=== PATIENT | female | born 1980 | race Caucasian/White ===

== ENCOUNTER 2017-06-25 23:17 | Emergency (ER) | payer BC, OTHER ==
--- NOTE | 2017-06-25 23:31 | EDM.PDOC ---
ED HPI GENERAL MEDICAL PROBLEM - General Chief Complaint: Gastrointestinal Problem Stated Complaint: STOMACH ISSUES Time Seen by Provider: 06/25/17 23:35 - History of Present Illness INITIAL COMMENTS - FREE TEXT/NARRATIVE: HISTORY AND PHYSICAL: History of present illness: Patient 37-year-old female presents with concern of nausea and vomiting 1 day she's had some abdominal chest discomfort with this she states she's one year status post gastric sleeve she denies any medications he denies alcohol or drugs denies any other concern there's been no diarrhea she states her child is had a similar illness and she assumes might be "the flu" she denies fever chills denies history of pancreatitis she has history of hysterectomy Review of systems: As per history of present illness and below otherwise all systems reviewed and negative. Past medical history: As per history of present illness and as reviewed below otherwise noncontributory. Surgical history: As per history of present illness and as reviewed below otherwise noncontributory. Social history: No reported history of drug or alcohol abuse. Family history: As per history of present illness and as reviewed below otherwise noncontributory. Physical exam: HEENT: Atraumatic, normocephalic, pupils reactive, negative for conjunctival pallor or scleral icterus, mucous membranes dry, throat clear, neck supple, nontender, trachea midline. Lungs: Clear to auscultation, breath sounds equal bilaterally, chest nontender. Heart: S1S2, regular, negative for clicks, rubs, or JVD. Abdomen: Soft, nondistended, no localized tenderness. Negative for masses or hepatosplenomegaly. Negative for costovertebral tenderness. Pelvis: Stable nontender. Genitourinary: Deferred. Rectal: Deferred. Extremities: Atraumatic, negative for cords or calf pain. Neurovascular unremarkable. Neuro: Awake, alert, oriented. Cranial nerves II through XII unremarkable. Cerebellum unremarkable. Motor and sensory unremarkable throughout. Exam nonfocal. Diagnostics: CBC CMP amylase lipase UA UDS CT abdomen and pelvis chest x-ray EKG Therapeutics: Normal saline 1 L bolus Zofran 4 mg IV Impression: #1 vomiting #2 abdominal pain #3 dehydration #3 history gastric sleeve Definitive disposition and diagnosis as appropriate pending reevaluation and review of above. - Related Data Allergies Allergy/AdvReac Type Severity Reaction Status Date / Time Sulfa (Sulfonamide Allergy Diarrhea Verified 06/25/17 23:28 Antibiotics) Home Meds: Home Meds . [No Known Home Meds] 06/25/17 [History] ED ROS GENERAL - Review of Systems Review Of Systems: ROS reveals no pertinent complaints other than HPI. ED EXAM, GENERAL - Physical Exam Exam: See Below (The dictation) Course - Vital Signs Text/Narrative:: Discussed with patient admission for observation patient declines requests discharge home and follow-up with private medical doctor Last Recorded V/S: Last Vital Signs Temp 36.9 C 06/25/17 23:29 Pulse 113 H 06/26/17 01:04 CDT Resp 18 06/25/17 23:29 BP 122/77 06/26/17 01:04 CDT Pulse Ox 97 06/25/17 23:29 - Orders/Labs/Meds Orders: Active Orders 24 hr Category Date Time Status EKG Documentation Completion [RC] STAT Care 06/25/17 23:30 Active Abdomen Pelvis wo Cont [CT] Stat Exams 06/25/17 23:33 Taken Chest 1V Frontal [CR] Stat Exams 06/25/17 23:33 Taken Labs: Laboratory Tests 06/25/17 06/25/17 06/25/17 Range/Units 23:35 23:45 23:45 WBC 7.74 (4.0-11.0) K/uL RBC 4.77 (4.30-5.90) M/uL Hgb 14.5 (12.0-16.0) g/dL Hct 42.5 (36.0-46.0) % MCV 89.1 (80.0-98.0) fL MCH 30.4 (27.0-32.0) pg MCHC 34.1 (31.0-37.0) g/dL RDW Std Deviation 42.3 (28.0-62.0) fl RDW Coeff of Annette 13 (11.0-15.0) % Plt Count 262 (150-400) K/uL MPV 10.80 (7.40-12.00) fL Neut % (Auto) 81.4 H (48.0-80.0) % Lymph % (Auto) 10.6 L (16.0-40.0) % Mercer % (Auto) 6.8 (0.0-15.0) % Eos % (Auto) 0.9 (0.0-7.0) % Baso % (Auto) 0.3 (0.0-1.5) % Neut # (Auto) 6.3 H (1.4-5.7) K/uL Lymph # (Auto) 0.8 (0.6-2.4) K/uL Mercer # (Auto) 0.5 (0.0-0.8) K/uL Eos # (Auto) 0.1 (0.0-0.7) K/uL Baso # (Auto) 0.0 (0.0-0.1) K/uL Nucleated RBC % 0.0 /100WBC Nucleated RBCs # 0 K/uL D-Dimer, Quantitative (0.0-0.52) mg/LFEU Sodium (136-146) mmol/L Potassium (3.5-5.1) mmol/L Chloride (98-110) mmol/L Carbon Dioxide (21-31) mmol/L BUN (6.0-23.0) mg/dL Creatinine (0.6-1.5) mg/dL Est Cr Clr Drug Dosing mL/min Estimated GFR (MDRD) ml/min Glucose (60-110) mg/dL Calcium (8.8-10.8) mg/dL Total Bilirubin (0.1-1.5) mg/dL AST (5-40) IU/L ALT (8-54) IU/L Alkaline Phosphatase (40-150) Total Protein (6.0-8.0) g/dL Albumin (3.5-5.0) g/dL Globulin (2.0-3.5) g/dL Albumin/Globulin Ratio (1.3-2.8) Amylase (10-90) U/L Lipase (7-80) U/L Urine Color YELLOW Urine Appearance CLEAR Urine pH 6.0 (5.0-8.0) Ur Specific [place] 1.025 (1.001-1.035) Urine Protein NEGATIVE (NEGATIVE) mg/dL Urine Glucose (UA) NEGATIVE (NEGATIVE) mg/dL Urine Ketones 40 H (NEGATIVE) mg/dL Urine Occult Blood NEGATIVE (NEGATIVE) Urine Nitrite NEGATIVE (NEGATIVE) Urine Bilirubin SMALL H (NEGATIVE) Urine Ictotest NEGATIVE Urine Urobilinogen 1.0 (<2.0) EU/dL Ur Leukocyte Esterase NEGATIVE (NEGATIVE) Urine RBC 0-2 (0-2/HPF) Urine WBC 1-3 (0-5/HPF) Ur Epithelial Cells FEW (NONE-FEW) Urine Bacteria FEW (NEGATIVE) Urine Mucus MODERATE (NONE-MOD) Urine Opiates Screen NEGATIVE (NEGATIVE) Ur Oxycodone Screen NEGATIVE (NEGATIVE) Urine Methadone Screen NEGATIVE (NEGATIVE) Ur Barbiturates Screen NEGATIVE (NEGATIVE) Ur Phencyclidine Scrn NEGATIVE (NEGATIVE) Ur Amphetamine Screen NEGATIVE (NEGATIVE) U Methamphetamines Scrn NEGATIVE (NEGATIVE) U Benzodiazepines Scrn NEGATIVE (NEGATIVE) U Cocaine Metab Screen NEGATIVE (NEGATIVE) U Marijuana (THC) Screen NEGATIVE (NEGATIVE) 06/25/17 06/25/17 Range/Units 23:55 23:55 WBC (4.0-11.0) K/uL RBC (4.30-5.90) M/uL Hgb (12.0-16.0) g/dL Hct (36.0-46.0) % MCV (80.0-98.0) fL MCH (27.0-32.0) pg MCHC (31.0-37.0) g/dL RDW Std Deviation (28.0-62.0) fl RDW Coeff of Annette (11.0-15.0) % Plt Count (150-400) K/uL MPV (7.40-12.00) fL Neut % (Auto) (48.0-80.0) % Lymph % (Auto) (16.0-40.0) % Mercer % (Auto) (0.0-15.0) % Eos % (Auto) (0.0-7.0) % Baso % (Auto) (0.0-1.5) % Neut # (Auto) (1.4-5.7) K/uL Lymph # (Auto) (0.6-2.4) K/uL Mercer # (Auto) (0.0-0.8) K/uL Eos # (Auto) (0.0-0.7) K/uL Baso # (Auto) (0.0-0.1) K/uL Nucleated RBC % /100WBC Nucleated RBCs # K/uL D-Dimer, Quantitative 0.44 (0.0-0.52) mg/LFEU Sodium 139 (136-146) mmol/L Potassium 4.1 (3.5-5.1) mmol/L Chloride 108 (98-110) mmol/L Carbon Dioxide 23 (21-31) mmol/L BUN 15 (6.0-23.0) mg/dL Creatinine 0.7 (0.6-1.5) mg/dL Est Cr Clr Drug Dosing 109.92 mL/min Estimated GFR (MDRD) > 60.0 ml/min Glucose 107 (60-110) mg/dL Calcium 9.3 (8.8-10.8) mg/dL Total Bilirubin 0.6 (0.1-1.5) mg/dL AST 11 (5-40) IU/L ALT 16 (8-54) IU/L Alkaline Phosphatase 84 (40-150) Total Protein 7.2 (6.0-8.0) g/dL Albumin 4.2 (3.5-5.0) g/dL Globulin 3.0 (2.0-3.5) g/dL Albumin/Globulin Ratio 1.4 (1.3-2.8) Amylase 35 (10-90) U/L Lipase 15 (7-80) U/L Urine Color Urine Appearance Urine pH (5.0-8.0) Ur Specific [place] (1.001-1.035) Urine Protein (NEGATIVE) mg/dL Urine Glucose (UA) (NEGATIVE) mg/dL Urine Ketones (NEGATIVE) mg/dL Urine Occult Blood (NEGATIVE) Urine Nitrite (NEGATIVE) Urine Bilirubin (NEGATIVE) Urine Ictotest Urine Urobilinogen (<2.0) EU/dL Ur Leukocyte Esterase (NEGATIVE) Urine RBC (0-2/HPF) Urine WBC (0-5/HPF) Ur Epithelial Cells (NONE-FEW) Urine Bacteria (NEGATIVE) Urine Mucus (NONE-MOD) Urine Opiates Screen (NEGATIVE) Ur Oxycodone Screen (NEGATIVE) Urine Methadone Screen (NEGATIVE) Ur Barbiturates Screen (NEGATIVE) Ur Phencyclidine Scrn (NEGATIVE) Ur Amphetamine Screen (NEGATIVE) U Methamphetamines Scrn (NEGATIVE) U Benzodiazepines Scrn (NEGATIVE) U Cocaine Metab Screen (NEGATIVE) U Marijuana (THC) Screen (NEGATIVE) Meds: Medications Discontinued Medications Generic Name Dose Route Start Last Admin Trade Name Freq PRN Reason Stop Dose Admin Diphenhydramine HCl 50 mg 06/26/17 01:08 STOCKKEEPER 06/26/17 01:12 CDT Benadryl IVPUSH 06/26/17 01:09 STOCKKEEPER 50 mg ONETIME ONE Administration Hydromorphone HCl 1 mg 06/26/17 00:25 06/26/17 00:30 Dilaudid IVPUSH 06/26/17 00:26 1 mg ONETIME ONE Administration Sodium Chloride 1,000 mls @ 999 mls/hr 06/25/17 23:36 06/25/17 23:52 Normal Saline IV 06/26/17 00:36 999 mls/hr ONETIME ONE Administration Sodium Chloride 1,000 mls @ 999 mls/hr 06/26/17 01:08 STOCKKEEPER 06/26/17 01:12 CDT Normal Saline IV 06/26/17 02:08 999 mls/hr .Bolus ONE Administration Metoclopramide HCl 10 mg 06/26/17 01:08 STOCKKEEPER 06/26/17 01:12 CDT Reglan IVPUSH 06/26/17 01:09 STOCKKEEPER 10 mg ONETIME ONE Administration Ondansetron HCl 4 mg 06/25/17 23:35 06/25/17 23:54 Zofran IVPUSH 06/25/17 23:36 4 mg ONETIME ONE Administration Departure - Departure Time of Disposition: 01:24 Disposition: Home, Self-Care 01 Condition: Good Clinical Impression: Vomiting, Dehydration, Abdominal pain - Discharge Information Referrals: Milton Thomas [Primary Care Provider] - Forms: ED Department Discharge Additional Instructions: The following information is given to patients seen in the emergency department who are being discharged to home. This information is to outline your options for follow-up care. We provide all patients seen in our emergency department with a follow-up referral. The need for follow-up, as well as the timing and circumstances, are variable depending upon the specifics of your emergency department visit. If you don't have a primary care physician on staff, we will provide you with a referral. We always advise you to contact your personal physician following an emergency department visit to inform them of the circumstance of the visit and for follow-up with them and/or the need for any referrals to a consulting specialist. The emergency department will also refer you to a specialist when appropriate. This referral assures that you have the opportunity for followup care with a specialist. All of these measure are taken in an effort to provide you with optimal care, which includes your followup. Under all circumstances we always encourage you to contact your private physician who remains a resource for coordinating your care. When calling for followup care, please make the office aware that this follow-up is from your recent emergency room visit. If for any reason you are refused follow-up, please contact the [facility] emergency department at and asked to speak to the emergency department charge nurse. Follow private medical doctor 1-2 days push fluids clear liquids as directed return as needed as discussed - My Orders Last 24 Hours: My Active Orders 06/25/17 23:30 EKG Documentation Completion [RC] STAT 06/25/17 23:33 Abdomen Pelvis wo Cont [CT] Stat Chest 1V Frontal [CR] Stat - Assessment/Plan Last 24 Hours: My Active Orders 06/25/17 23:30 EKG Documentation Completion [RC] STAT 06/25/17 23:33 Abdomen Pelvis wo Cont [CT] Stat Chest 1V Frontal [CR] Stat
[2017-06-25] MEDS ORDERED: Ondansetron 4 MG/2 ML SDV IVPUSH ONE (23:35)
[2017-06-25] MEDS ORDERED: Sodium Chloride 0.9% 1,000 ML IV ONE (23:36)
[2017-06-26] MEDS ORDERED: HYDROmorphone 1 MG/ML Syringe IVPUSH ONE (00:25)
[2017-06-26 00:34] LABS: CHLORIDE,CL 108 mmol/L (98-110); SODIUM,NA 139 mmol/L (136-146)
[2017-06-26] MEDS ORDERED: Sodium Chloride 0.9% 1,000 ML IV ONE (01:08)
[2017-06-26] MEDS ORDERED: diphenhydrAMINE 50 MG/ML SDV IVPUSH ONE (01:08)
[2017-06-26] MEDS ORDERED: Metoclopramide 10 MG/2 ML SDV IVPUSH ONE (01:08)
--- NOTE | 2017-06-27 10:23 | CR ---
EXAM DATE: 06/25/17 PATIENT'S AGE: 37 Patient: BELGICA PEREZ Facility: [place], [place] Site . Site : 1980 Study: XRay Chest [id number]/5/2017 12:37:13 AM Ordering Physician: Doctor Horner Final Report: INDICATION: Chills, body aches. TECHNIQUE: Chest radiograph 1 view COMPARISON: 07/21/2016. FINDINGS: Cardiovascular and mediastinum: The heart silhouette is normal in size and morphology. The mediastinum is normal in appearance. Lungs and pleural spaces: Both lungs are unremarkable in appearance. No sign of pleural effusion seen. No pneumothorax is identified. Bones and soft tissues: No significant findings. IMPRESSION: 1. No acute cardiopulmonary disease is seen. Dictated by Tato Schaffer MD @ 06/26/2017 1:02:45 AM Dictated by: Tato Schaffer MD @ 06/26/2017 01:02:49 (Electronic Signature) Report Signed by Proxy. [facility] HOSPITALSherlyn
--- NOTE | 2017-06-27 10:23 | CT ---
EXAM DATE: 06/25/17 PATIENT'S AGE: 37 Patient: BELGICA PEREZ Facility: [place], [place] Site . Site : 1980 Study: CT Abdomen/Pelvis [id number]/5/2017 12:34:09 AM Ordering Physician: Paco Lemus Final Report: INDICATION: Nausea vomiting and diarrhea for 1 day TECHNIQUE: CT abdomen and pelvis acquired without IV contrast. COMPARISON: None FINDINGS: Lower chest: Unremarkable. Liver: Unremarkable. Spleen: Unremarkable. Pancreas: Unremarkable. Gallbladder and bile ducts: Status post cholecystectomy. Adrenal glands: Unremarkable. Kidneys: Increased density of the medullary pyramids in both kidneys. Nonobstructive 4 mm right renal stone. Nonobstructive 2 mm left renal stone. GI tract: Status post gastric sleeve procedure. Appendix is not seen but no inflammatory changes identified in the right lower quadrant. Vascular structures: Unremarkable. Lymph nodes: Unremarkable. Miscellaneous: Unremarkable. No free air or significant free fluid. Pelvic Organs: Status post hysterectomy. Bones: Unremarkable for age. IMPRESSION: No evidence for acute intra-abdominal process. Bilateral nonobstructive nephrolithiasis. Medullary nephrocalcinosis. This can be seen with entities such as hyperparathyroidism, medullary sponge kidney, or hypervitaminosis D. Status post hysterectomy, cholecystectomy, and gastric sleeve procedure. Please note that all CT scans at this facility use dose modulation, iterative reconstruction, and/or weight-based dosing when appropriate to reduce radiation dose to as low as reasonably achievable. Dictated by Rosalia Vaz MD @ Jun 26 2017 12:57AM (Electronic Signature) Report Signed by Proxy. MTDD
== END 2017-06-26 01:46 | disposition home or self-care (01) ==
LOC: MW.ED 23:17
DX: E86.0 Dehydration (principal); R10.9 Unspecified abdominal pain; Z88.2 Allergy status to sulfonamides; Z98.84 Bariatric surgery status; Z90.710 Acquired absence of both cervix and uterus
CPT/HCPCS: 71010; 74176; 80053; 80305; 81001; 82150; 83690; 85025; 85379; 93005; 96361; 96374; 96375; 99285; J1170; J1200; J2405; J2765; J7040; 99284

== ENCOUNTER 2017-09-05 13:29 | Emergency (ER) | payer OTHER ==
[2017-09-05] MEDS ORDERED: Lidocaine 1% 20 ML MDV INJECT ONE ×2 (15:10→15:12)
[2017-09-05] MEDS ORDERED: Bacitracin Oint 1 GM U/D Packet TOP ONE (15:14)
--- NOTE | 2017-09-05 15:41 | EDM.PDOC ---
ED HPI GENERAL MEDICAL PROBLEM - General Chief Complaint: Laceration Stated Complaint: CUT L HAND Time Seen by Provider: 09/05/17 15:00 Source of Information: Reports: Patient History Limitations: Reports: No Limitations - History of Present Illness INITIAL COMMENTS - FREE TEXT/NARRATIVE: HISTORY AND PHYSICAL: History of present illness: [Pt was at work at [employer]. Knife slipped cutting into her L hand. C/ o pain and bleeding. No numbness or tingling. No other complaints or concerns at this time. Believes that her last tetanus was within the past couple of years.] Review of systems: As per history of present illness and below otherwise all systems reviewed and negative. Past medical history: As per history of present illness and as reviewed below otherwise noncontributory. Surgical history: As per history of present illness and as reviewed below otherwise noncontributory. Social history: No reported history of drug or alcohol abuse. Family history: As per history of present illness and as reviewed below otherwise noncontributory. Physical exam: Extremities: 1.5cm linear laceration to web space between thumb and L index finger. Is a flap-type lesion, and mildly jagged. Sensation and motor function is intact. Neurovascular unremarkable. Neuro: Awake, alert, oriented. Motor and sensory unremarkable throughout. Exam nonfocal. Impression: [laceration L hand] Plan: [Wound is closed. See procedure note. Wound care instructions are given to patient. Sutures out 7 days. Keflex 500 mg 3 times a day 7 days 0 refills. Patient's agreement with today's plan.] Definitive disposition and diagnosis as appropriate pending reevaluation and review of above. Laceration Left hand Pain Score (Numeric/FACES): 5 - Related Data Allergies Allergy/AdvReac Type Severity Reaction Status Date / Time Sulfa (Sulfonamide Allergy Diarrhea Verified 09/05/17 13:43 Antibiotics) Home Meds: Home Meds Krave 1 tab PO DAILY 09/05/17 [History] Past Medical History Genitourinary History: Reports: Renal Calculus - Infectious Disease History Infectious Disease History: Reports: Chicken Pox - Past Surgical History HEENT Surgical History: Reports: Tonsillectomy GI Surgical History: Reports: Bariatric Procedure, Cholecystectomy, Other (See Below) Other GI Surgeries/Procedures: gastic sleeve Female Surgical History: Reports: Hysterectomy Social & Family History - Family History Family Medical History: Noncontributory - Tobacco Use Smoking Status *Q: Never Smoker Second Hand Smoke Exposure: No - Caffeine Use Caffeine Use: Reports: Coffee, Energy Drinks, Soda, Tea - Recreational Drug Use Recreational Drug Use: No ED ROS GENERAL - Review of Systems Review Of Systems: ROS reveals no pertinent complaints other than HPI. ED EXAM, SKIN/RASH Exam: See Below ED SKIN PROCEDURES - Laceration/Wound Repair Left Lateral Dorsal Hand Lac/Wound length In cm: 1.5 Appearance: Subcutaneous Distal NVT: Neuro & Vascular Intact Anesthetic Type: Local Local Anesthesia - Lidocaine (Xylocaine): 1% Plain Local Anesthetic Volume: 3cc Skin Prep: Chlorhexidine (Hibiciens), Saline Exploration/Debridement/Repair: Wound Explored, No Foreign Material Found Closed with: Sutures Suture Size: 4-0 # of Sutures: 6 Suture Type: Nylon Drain Placement: No Sterile Dressing Applied: Nurse Tetanus Status Addressed: Yes Complications: No Course - Vital Signs Last Recorded V/S: Last Vital Signs Temp 98.9 F 09/05/17 13:40 Pulse 91 09/05/17 13:40 Resp 18 09/05/17 13:40 BP 116/77 09/05/17 13:40 Pulse Ox 100 09/05/17 13:40 - Orders/Labs/Meds Meds: Medications Discontinued Medications Generic Name Dose Route Start Last Admin Trade Name Marilee PRN Reason Stop Dose Admin Bacitracin 1 dose 09/05/17 15:14 09/05/17 15:58 Bacitracin Oint 1 Gm TOP 09/05/17 15:15 1 dose ONETIME ONE Administration Lidocaine HCl 20 ml 09/05/17 15:12 09/05/17 15:15 Xylocaine 1% INJECT 09/05/17 15:13 5 ml ONETIME ONE Administration Departure - Departure Time of Disposition: 15:45 Disposition: Home, Self-Care 01 Condition: Good Clinical Impression: Laceration - Discharge Information Instructions: Laceration Care, Adult, [id number] Referrals: Milton Thomas [Primary Care Provider] - Forms: ED Department Discharge Additional Instructions: The following information is given to patients seen in the emergency department who are being discharged to home. This information is to outline your options for follow-up care. We provide all patients seen in our emergency department with a follow-up referral. The need for follow-up, as well as the timing and circumstances, are variable depending upon the specifics of your emergency department visit. If you don't have a primary care physician on staff, we will provide you with a referral. We always advise you to contact your personal physician following an emergency department visit to inform them of the circumstance of the visit and for follow-up with them and/or the need for any referrals to a consulting specialist. The emergency department will also refer you to a specialist when appropriate. This referral assures that you have the opportunity for follow-up care with a specialist. All of these measure are taken in an effort to provide you with optimal care, which includes your follow-up. Under all circumstances we always encourage you to contact your private physician who remains a resource for coordinating your care. When calling for follow-up care, please make the office aware that this follow-up is from your recent emergency room visit. If for any reason you are refused follow-up, please contact the [facility] emergency department at and asked to speak to the emergency department charge nurse. [facility] [address] [place] [id number] Follow-up with your local primary care provider or at the clinic listed above in 48-72 hours. Return to ER in 7 days to have sutures removed.. Tylenol or ibuprofen as needed for discomfort. Take antibiotics as prescribed. Return to ER as needed as discussed.
== END 2017-09-05 16:14 | disposition home or self-care (01) ==
LOC: MW.ED 13:29
DX: S61.412A Laceration without foreign body of left hand, initial encounter (principal); W26.0XXA Contact with knife, initial encounter; Y99.0 Civilian activity done for income or pay
CPT/HCPCS: 12001; 99282

== ENCOUNTER 2017-09-12 14:20 | Emergency (ER) | payer OTHER | END 2017-09-12 14:40 | disposition left against medical advice (07) | LOC: MW.ED 14:20 | DX: Z53.21 Procedure and treatment not carried out due to patient leaving prior to being seen by health care provider (principal) ==

== ENCOUNTER 2018-02-09 14:39 | Emergency (ER) | payer OTHER ==
[2018-02-09] MEDS ORDERED: Sodium Chloride 0.9% 1,000 ML IV ONE (14:47)
[2018-02-09] MEDS ORDERED: Sodium Chloride 0.9% 10 ML Syringe FLUSH PRN (14:47)
[2018-02-09] MEDS ORDERED: Pantoprazole 40 MG Vial IVPUSH ONE (14:47)
[2018-02-09] MEDS ORDERED: Sodium Chloride 0.9% 2.5 ML Syringe FLUSH PRN (14:47)
[2018-02-09] MEDS ORDERED: Morphine 2 MG/ML Syringe IVPUSH ONE (14:48)
--- NOTE | 2018-02-09 14:52 | EDM.PDOC ---
ED HPI GENERAL MEDICAL PROBLEM - General Stated Complaint: SHARP CHEST PAIN Time Seen by Provider: 02/09/18 14:40 - History of Present Illness INITIAL COMMENTS - FREE TEXT/NARRATIVE: HISTORY AND PHYSICAL: History of present illness: The patient is a 37-year-old female with a history of gastric sleeve surgery in [place] about 1 year ago, cholecystectomy, abdominal hysterectomy with one ovary removed and presents with complaints of episodic shooting pain that originates underneath her left rib cage and "shoots out her back". The patient says that she is not nauseated with this but does get sweaty with the discomfort and has been occurring 1-2 times for the last several days each episode lasting just a few minutes. She has not had any fever chills shortness of breath cough vomiting or diarrhea and is eating and drinking normally. There is no association with the shooting pain with food intake. She says when she gets the discomfort she feels like she cannot take a deep breath. Today the pain started about 45 minutes ago and it has been more constant with only brief episodes where it lets up. She again has not had any nausea or vomiting. Patient is not a smoker denies drug use and has no cardiac history no diabetes no high blood pressure. Her father had cardiomyopathy and hypertension but no coronary artery disease in her family that she is aware of. The patient does not feel short of breath just has discomfort when she tries to take a deep breath in that it triggers the sharp stabbing pain as I described. Review of systems: As per history of present illness and below otherwise all systems reviewed and negative. Past medical history: As per history of present illness and as reviewed below otherwise noncontributory. Surgical history: As per history of present illness and as reviewed below otherwise noncontributory. Social history: No reported history of drug or alcohol abuse. Family history: As per history of present illness and as reviewed below otherwise noncontributory. Physical exam: General: Well-developed well-nourished thin female who is nontoxic and vital signs are reviewed by me. She moves easily in the ED without distress HEENT: Atraumatic, normocephalic, negative for conjunctival pallor or scleral icterus, mucous membranes moist, throat clear, neck supple, nontender, trachea midline. Lungs: Clear to auscultation, breath sounds equal bilaterally, chest nontender. No work of breathing wheezing or stridor and no palpable defects or deformities of the chest wall Heart: S1S2, regular, negative for clicks, rubs, or JVD. Abdomen: Soft, nondistended, some mild discomfort in the epigastric and left upper quadrant area in the subcostal region but no rebound or guarding and bowel sounds are normoactive Negative for masses or hepatosplenomegaly. Negative for costovertebral tenderness. Pelvis: Stable nontender. Genitourinary: Deferred. Rectal: Deferred. Extremities: Atraumatic, negative for cords or calf pain. Neurovascular unremarkable. No pedal edema or leg asymmetry Neuro: Awake, alert, oriented. Cranial nerves II through XII unremarkable. Cerebellum unremarkable. Motor and sensory unremarkable throughout. Exam nonfocal. Diagnostics: EKG chest x-ray CBC CMP amylase lipase troponin d-dimer UA H pylori Therapeutics: IV fluids Protonix morphine She is aware of all testing results and care plan for home. Impression: abdominal pain/constipation stable Definitive disposition and diagnosis as appropriate pending reevaluation and review of above. chest Pain Score (Numeric/FACES): 7 - Related Data Allergies Allergy/AdvReac Type Severity Reaction Status Date / Time Sulfa (Sulfonamide Allergy Diarrhea Verified 02/09/18 14:49 Antibiotics) Home Meds: Home Meds LORazepam [Ativan] 1 mg PO TID PRN 02/09/18 [History] busPIRone [Buspar] 7.5 mg PO BID 02/09/18 [History] Past Medical History - Past Health History Medical/Surgical History: Denies Medical/Surgical History Genitourinary History: Reports: Renal Calculus - Infectious Disease History Infectious Disease History: Reports: Chicken Pox - Past Surgical History HEENT Surgical History: Reports: Tonsillectomy GI Surgical History: Reports: Bariatric Procedure, Cholecystectomy, Other (See Below) Other GI Surgeries/Procedures: gastic sleeve Female Surgical History: Reports: Hysterectomy Social & Family History - Family History Family Medical History: Noncontributory - Caffeine Use Caffeine Use: Reports: Other ED ROS GENERAL - Review of Systems Review Of Systems: ROS reveals no pertinent complaints other than HPI. ED EXAM, GENERAL - Physical Exam Exam: See Below (See dictation) Course - Vital Signs Last Recorded V/S: Last Vital Signs Temp 37.1 C 02/09/18 14:51 Pulse 85 02/09/18 14:51 Resp 20 06/21/18 14:51 BP 120/80 02/09/18 14:51 Pulse Ox 99 02/09/18 14:51 - Orders/Labs/Meds Orders: Active Orders 24 hr Category Date Time Status Cardiac Monitoring [RC] . DIRECTED Care 02/09/18 14:46 Active EKG Documentation Completion [RC] STAT Care 02/09/18 14:46 Active Oxygen Therapy, ED [RC] ASDIRECTED Care 02/09/18 14:46 Active Pulse Oximetry [RC] ASDIRECTED Care 02/09/18 14:46 Active Abdomen Pelvis w Cont [CT] Stat Exams 02/09/18 15:48 Taken UA W/MICROSCOPIC [URIN] Stat Lab 02/09/18 15:50 Ordered Sodium Chloride 0.9% [Saline Flush] Med 02/09/18 14:47 Active 10 ml FLUSH ASDIRECTED PRN Sodium Chloride 0.9% [Saline Flush] Med 02/09/18 14:47 Active 2.5 ml FLUSH ASDIRECTED PRN Saline Lock Insert [OM.PC] Stat Oth 02/09/18 14:46 Ordered Medication Orders Sodium Chloride (Saline Flush) 10 ml FLUSH ASDIRECTED PRN PRN Reason: Keep Vein Open Last Admin: 02/09/18 15:14 Dose: 10 ml Sodium Chloride (Saline Flush) 2.5 ml FLUSH ASDIRECTED PRN PRN Reason: Keep Vein Open Last Admin: 02/09/18 15:14 Dose: 2.5 ml Labs: Laboratory Tests 02/09/18 02/09/18 02/09/18 Range/Units 14:50 14:50 14:50 WBC 6.70 (4.0-11.0) K/uL RBC 4.04 L (4.30-5.90) M/uL Hgb 12.5 (12.0-16.0) g/dL Hct 36.0 (36.0-46.0) % MCV 89.1 (80.0-98.0) fL MCH 30.9 (27.0-32.0) pg MCHC 34.7 (31.0-37.0) g/dL RDW Std Deviation 44.1 (28.0-62.0) fl RDW Coeff of Annette 13 (11.0-15.0) % Plt Count 311 (150-400) K/uL MPV 9.70 (7.40-12.00) fL Neut % (Auto) 58.2 (48.0-80.0) % Lymph % (Auto) 32.5 (16.0-40.0) % Cross % (Auto) 7.5 (0.0-15.0) % Eos % (Auto) 1.5 (0.0-7.0) % Baso % (Auto) 0.3 (0.0-1.5) % Neut # (Auto) 3.9 (1.4-5.7) K/uL Lymph # (Auto) 2.2 (0.6-2.4) K/uL Cross # (Auto) 0.5 (0.0-0.8) K/uL Eos # (Auto) 0.1 (0.0-0.7) K/uL Baso # (Auto) 0.0 (0.0-0.1) K/uL Nucleated RBC % 0.0 /100WBC Nucleated RBCs # 0 K/uL D-Dimer, Quantitative 0.27 (0.0-0.52) mg/LFEU Sodium 140 (136-145) mmol/L Potassium 4.2 (3.5-5.1) mmol/L Chloride 105 (98-107) mmol/L Carbon Dioxide 28.7 (21.0-32.0) mmol/L BUN 20 H (7.0-18.0) mg/dL Creatinine 0.7 (0.6-1.0) mg/dL Est Cr Clr Drug Dosing TNP Estimated GFR (MDRD) > 60.0 ml/min Glucose 90 (74-106) mg/dL Calcium 9.0 (8.5-10.1) mg/dL Total Bilirubin 0.4 (0.2-1.0) mg/dL AST 15 (15-37) IU/L ALT 34 (14-63) IU/L Alkaline Phosphatase 85 (46-116) U/L Troponin I < 0.050 (0.000-0.056) ng/mL Total Protein 7.4 (6.4-8.2) g/dL Albumin 4.1 (3.4-5.0) g/dL Globulin 3.3 (2.0-3.5) g/dL Albumin/Globulin Ratio 1.2 L (1.3-2.8) Amylase 42 (25-115) U/L Lipase 127 (73-393) U/L Urine Color Urine Appearance Urine pH (5.0-8.0) Ur Specific [place] (1.001-1.035) Urine Protein (NEGATIVE) mg/dL Urine Glucose (UA) (NEGATIVE) mg/dL Urine Ketones (NEGATIVE) mg/dL Urine Occult Blood (NEGATIVE) Urine Nitrite (NEGATIVE) Urine Bilirubin (NEGATIVE) Urine Urobilinogen (<2.0) EU/dL Ur Leukocyte Esterase (NEGATIVE) Urine RBC (0-2/HPF) Urine WBC (0-5/HPF) Ur Epithelial Cells (NONE-FEW) Urine Bacteria (NEGATIVE) H. pylori IgG Antibody (NEG) 02/09/18 02/09/18 Range/Units 14:50 15:50 WBC (4.0-11.0) K/uL RBC (4.30-5.90) M/uL Hgb (12.0-16.0) g/dL Hct (36.0-46.0) % MCV (80.0-98.0) fL MCH (27.0-32.0) pg MCHC (31.0-37.0) g/dL RDW Std Deviation (28.0-62.0) fl RDW Coeff of Annette (11.0-15.0) % Plt Count (150-400) K/uL MPV (7.40-12.00) fL Neut % (Auto) (48.0-80.0) % Lymph % (Auto) (16.0-40.0) % Cross % (Auto) (0.0-15.0) % Eos % (Auto) (0.0-7.0) % Baso % (Auto) (0.0-1.5) % Neut # (Auto) (1.4-5.7) K/uL Lymph # (Auto) (0.6-2.4) K/uL Cross # (Auto) (0.0-0.8) K/uL Eos # (Auto) (0.0-0.7) K/uL Baso # (Auto) (0.0-0.1) K/uL Nucleated RBC % /100WBC Nucleated RBCs # K/uL D-Dimer, Quantitative (0.0-0.52) mg/LFEU Sodium (136-145) mmol/L Potassium (3.5-5.1) mmol/L Chloride (98-107) mmol/L Carbon Dioxide (21.0-32.0) mmol/L BUN (7.0-18.0) mg/dL Creatinine (0.6-1.0) mg/dL Est Cr Clr Drug Dosing Estimated GFR (MDRD) ml/min Glucose (74-106) mg/dL Calcium (8.5-10.1) mg/dL Total Bilirubin (0.2-1.0) mg/dL AST (15-37) IU/L ALT (14-63) IU/L Alkaline Phosphatase (46-116) U/L Troponin I (0.000-0.056) ng/mL Total Protein (6.4-8.2) g/dL Albumin (3.4-5.0) g/dL Globulin (2.0-3.5) g/dL Albumin/Globulin Ratio (1.3-2.8) Amylase (25-115) U/L Lipase (73-393) U/L Urine Color YELLOW Urine Appearance CLEAR Urine pH 5.5 (5.0-8.0) Ur Specific [place] <= 1.005 (1.001-1.035) Urine Protein NEGATIVE (NEGATIVE) mg/dL Urine Glucose (UA) NEGATIVE (NEGATIVE) mg/dL Urine Ketones NEGATIVE (NEGATIVE) mg/dL Urine Occult Blood NEGATIVE (NEGATIVE) Urine Nitrite NEGATIVE (NEGATIVE) Urine Bilirubin NEGATIVE (NEGATIVE) Urine Urobilinogen 0.2 (<2.0) EU/dL Ur Leukocyte Esterase NEGATIVE (NEGATIVE) Urine RBC 0-1 (0-2/HPF) Urine WBC 0-2 (0-5/HPF) Ur Epithelial Cells FEW (NONE-FEW) Urine Bacteria FEW (NEGATIVE) H. pylori IgG Antibody NEGATIVE (NEG) Meds: Medications Generic Name Dose Route Start Last Admin Trade Name Freq PRN Reason Stop Dose Admin Sodium Chloride 10 ml 02/09/18 14:47 02/09/18 15:14 Saline Flush FLUSH 10 ml ASDIRECTED PRN Administration Keep Vein Open Sodium Chloride 2.5 ml 02/09/18 14:47 02/09/18 15:14 Saline Flush FLUSH 2.5 ml ASDIRECTED PRN Administration Keep Vein Open Discontinued Medications Generic Name Dose Route Start Last Admin Trade Name Efrainq PRN Reason Stop Dose Admin Sodium Chloride 1,000 mls @ 999 mls/hr 02/09/18 14:47 02/09/18 15:14 Normal Saline IV 02/09/18 15:47 999 mls/hr STAT ONE Administration Morphine Sulfate 2 mg 02/09/18 14:48 02/09/18 15:14 Morphine IVPUSH 02/09/18 14:49 Not Given ONETIME ONE Pantoprazole Sodium 40 mg 02/09/18 14:47 02/09/18 15:14 Protonix Iv IVPUSH 02/09/18 14:48 40 mg NOW ONE Administration Departure - Departure Time of Disposition: 16:57 Disposition: Home, Self-Care 01 Condition: Good Clinical Impression: Abdominal pain Constipation Qualifiers: Constipation type: unspecified constipation type Qualified Code(s): K59.00 - Constipation, unspecified - Discharge Information Additional Instructions: The following information is given to patients seen in the emergency department who are being discharged to home. This information is to outline your options for follow-up care. We provide all patients seen in our emergency department with a follow-up referral. The need for follow-up, as well as the timing and circumstances, are variable depending upon the specifics of your emergency department visit. If you don't have a primary care physician on staff, we will provide you with a referral. We always advise you to contact your personal physician following an emergency department visit to inform them of the circumstance of the visit and for follow-up with them and/or the need for any referrals to a consulting specialist. The emergency department will also refer you to a specialist when appropriate. This referral assures that you have the opportunity for followup care with a specialist. All of these measure are taken in an effort to provide you with optimal care, which includes your followup. Under all circumstances we always encourage you to contact your private physician who remains a resource for coordinating your care. When calling for followup care, please make the office aware that this follow-up is from your recent emergency room visit. If for any reason you are refused follow-up, please contact the [facility] emergency department at and ask to speak to the emergency department charge nurse. [facility] Primary care- Internal Medicine and Family [place] [phone] [place] [address] Please push hydration and avoid caffeinated products fast foods fatty foods and junk foods. Use Bentyl you have been prescribed for cramping pain and start over -the-counter MiraLAX taking the dose per the the container twice a day for 2 days and then once a day for 3 more days. Use [id number] fiber supplement or a stool softener. Please call and schedule a follow-up appointment in the clinic and return to ER as needed and as discussed. - My Orders Last 24 Hours: My Active Orders 02/09/18 14:46 Cardiac Monitoring [RC] . DIRECTED EKG Documentation Completion [RC] STAT Oxygen Therapy, ED [RC] ASDIRECTED Pulse Oximetry [RC] ASDIRECTED Saline Lock Insert [OM.PC] Stat 02/09/18 14:47 Sodium Chloride 0.9% [Saline Flush] 10 ml FLUSH ASDIRECTED PRN Sodium Chloride 0.9% [Saline Flush] 2.5 ml FLUSH ASDIRECTED PRN 02/09/18 15:48 Abdomen Pelvis w Cont [CT] Stat 02/09/18 15:50 UA W/MICROSCOPIC [URIN] Stat - Assessment/Plan Last 24 Hours: My Active Orders 02/09/18 14:46 Cardiac Monitoring [RC] . DIRECTED EKG Documentation Completion [RC] STAT Oxygen Therapy, ED [RC] ASDIRECTED Pulse Oximetry [RC] ASDIRECTED Saline Lock Insert [OM.PC] Stat 02/09/18 14:47 Sodium Chloride 0.9% [Saline Flush] 10 ml FLUSH ASDIRECTED PRN Sodium Chloride 0.9% [Saline Flush] 2.5 ml FLUSH ASDIRECTED PRN 02/09/18 15:48 Abdomen Pelvis w Cont [CT] Stat 02/09/18 15:50 UA W/MICROSCOPIC [URIN] Stat
--- NOTE | 2018-02-09 15:37 | CR ---
EXAMINATION: Portable chest radiograph. HISTORY: Shortness of breath. FINDINGS: The trachea is midline. The cardiomediastinal silhouette is within normal limits. No pulmonary infilt rates, effusions or pneumothorax. Osseous structures appear unremarkable. IMPRESSION: No acute cardiopulmonary process.
[2018-02-09 15:47] LABS: CHLORIDE,CL 105 mmol/L (98-107); SODIUM,NA 140 mmol/L (136-145)
--- NOTE | 2018-02-10 13:25 | CT ---
EXAM DATE: 02/09/18 PATIENT'S AGE: 37 Patient: BELGICA PEREZ Facility: [place], [place] Site . Site : [id number] Study: CT Abdomen [id number]/21/2018 4:31:02 PM Ordering Physician: Jose Angel Burgos Final Report: INDICATION: Left upper quadrant/chest pain. TECHNIQUE: Volumetric helical scanning of the abdomen and pelvis was performed with 100 cc of Isovue 370 contrast material IV. Coronal and sagittal reconstructions were obtained. COMPARISON: None. FINDINGS: There is a large amount of stool throughout the colon. Bowel is otherwise unremarkable except for postop changes of gastric bypass. No free fluid or free air is demonstrated. The liver is unremarkable except for minimal 6 mm right lobe cyst. Post op changes of cholecystectomy are demonstrated. No bile duct dilation is evident. The spleen is within normal limits. The adrenal glands are unremarkable. The pancreas is within normal limits. The kidneys are unremarkable except for a 3 mm right renal collecting system stone. No lymphadenopathy is evident. Postop changes of total abdominal hysterectomy are demonstrated. The lung bases are clear. The heart is normal in size. IMPRESSION: 1. Etiology of left upper quadrant/chest pain not evident. 2. Constipation. 3. Post gastric bypass, cholecystectomy and total abdominal hysterectomy. 4. 6 mm liver cyst. 5. 3 mm right renal collecting system stone. Please note that all CT scans at this facility use dose modulation, iterative reconstruction, and/or weight-based dosing when appropriate to reduce radiation dose to as low as reasonably achievable. Dictated by Anibal Fish MD @ Feb 09 2018 4:36PM (Electronic Signature) Report Signed by Proxy. MTDD
== END 2018-02-09 17:22 | disposition home or self-care (01) ==
LOC: MW.ED 14:39
DX: K59.00 Constipation, unspecified (principal); Z88.2 Allergy status to sulfonamides; Z79.899 Other long term (current) drug therapy; Z87.442 Personal history of urinary calculi; Z90.49 Acquired absence of other specified parts of digestive tract
CPT/HCPCS: 36415; 71045; 74177; 80053; 81001; 82150; 83690; 84484; 85025; 85379; 86677; 93005; 96361; 96374; 99285; C9113; J7040

== ENCOUNTER 2019-01-20 12:40 | Emergency (ER) | payer OTHER ==
[2019-01-20] MEDS ORDERED: Sodium Chloride 0.9% 1,000 ML IV ONE (12:56)
[2019-01-20] MEDS ORDERED: Ketorolac 30 MG/ML SDV IVPUSH ONE (12:57)
--- NOTE | 2019-01-20 12:58 | EDM.PDOC ---
ED HPI GENERAL MEDICAL PROBLEM - General Chief Complaint: Neuro Symptoms/Deficits Stated Complaint: TINGLY AND NUMB FACE Time Seen by Provider: 01/20/19 12:56 Source of Information: Reports: Patient History Limitations: Reports: No Limitations - History of Present Illness INITIAL COMMENTS - FREE TEXT/NARRATIVE: HISTORY AND PHYSICAL: History of present illness: Patient is a 38-year-old female who presents to the emergency room with complaints of muscular neck pain, sensation of paresthesia to anterior neck and in her left arm. She states she has had generalized headache with nausea. Denies any recent head injury, trauma or falls. Denies any light or noise sensitivity. Patient denies any change in vision, syncope or near syncope. Denies any chest pain, back pain, shortness of breath or cough. Denies any abdominal pain, vomiting, diarrhea, constipation or dysuria. Has not noted any blood in urine or stool. Patient has been eating and drinking appropriately. Denies any alcohol or drug abuse. Review of systems: As per history of present illness and below otherwise all systems reviewed and negative. Past medical history: As per history of present illness and as reviewed below otherwise noncontributory. Surgical history: As per history of present illness and as reviewed below otherwise noncontributory. Social history: See social history for further information Family history: As per history of present illness and as reviewed below otherwise noncontributory. Physical exam: General: Well-developed and well-nourished 38-year-old female. Alert and oriented. Nontoxic appearing and in no acute distress. HEENT: Atraumatic, normocephalic, pupils equal and reactive bilaterally, negative for conjunctival pallor or scleral icterus, mucous membranes moist, TMs normal bilaterally, throat clear, neck supple, nontender, trachea midline. No drooling or trismus noted. No meningeal signs. No hot potato voice noted. Lungs: Clear to auscultation, breath sounds equal bilaterally, chest nontender. Heart: S1S2, regular rate and rhythm without overt murmur Abdomen: Soft, nondistended, nontender. Negative for masses. Negative for costovertebral tenderness. Skin: Intact, warm, dry. No lesions or rashes noted. C-spine/Back: No pinpoint vertebral tenderness upon palpation. No crepitus, step -offs or obvious deformities. Patient was ambulatory into the emergency room without any difficulty, deficits or weakness. She does have bilateral paraspinous muscular tenderness to the cervical spine into the trapezius. Otherwise does have full range of motion of the cervical spine, stating that she does feel tension and tightness of the muscles. Able to put her chin to her chest without any difficulty or pain. Denies any urinary or fecal incontinence. Extremities: Atraumatic, moves all extremities per self without difficulty or deficits, negative for cords or calf pain. Neurovascular unremarkable. Neuro: Awake, alert, oriented. Cranial nerves II through XII unremarkable. Cerebellum unremarkable. Motor and sensory unremarkable throughout. Exam nonfocal. Notes: Head CT shows no acute findings. Soft tissue neck shows reversal of cervical lordosis which may be postural or due to muscle spasm. Lab work is unremarkable. Vital signs remain stable. I did share these findings with the patient. We'll give her flexeril for home. Medication education was reviewed and discussed with her. Supportive care measures were reviewed and discussed. Voices understanding and is agreeable to plan of care. Denies any further questions or concerns at this time. Diagnostics: CBC, CMP, UA, CT head and cervical spine, ESR Therapeutics: IV fluid, Toradol, Ativan (declined), Solu-Medrol Prescription: Flexeril Impression: Muscle Spasm, neck Paraesthesia History of anxiety Plan: 1. Gentle heat and stretching of the painful areas. 2. Tylenol as needed for pain. Otherwise take the prescribed Flexeril as directed. Flexeril as a muscle relaxant, this medication may cause drowsiness a do not take it will driving her needing to be functioning outside of the house. 3. Please follow-up with your primary care provider as we discussed. Return to the ED as needed and as discussed. Definitive disposition and diagnosis as appropriate pending reevaluation and review of above. Neck Pain Score (Numeric/FACES): 8 - Related Data Allergies Allergy/AdvReac Type Severity Reaction Status Date / Time Sulfa (Sulfonamide Allergy Diarrhea Verified 01/20/19 12:58 Antibiotics) Home Meds: Home Meds LORazepam [Ativan] 1 mg PO TID PRN 02/09/18 [History] busPIRone [Buspar] 7.5 mg PO BID 02/09/18 [History] Past Medical History - Past Health History Medical/Surgical History: Denies Medical/Surgical History Genitourinary History: Reports: Renal Calculus - Infectious Disease History Infectious Disease History: Reports: Chicken Pox - Past Surgical History HEENT Surgical History: Reports: Tonsillectomy GI Surgical History: Reports: Bariatric Procedure, Cholecystectomy, Other (See Below) Other GI Surgeries/Procedures: gastic sleeve Female Surgical History: Reports: Hysterectomy Social & Family History - Family History Family Medical History: Noncontributory - Caffeine Use Caffeine Use: Reports: Other ED ROS GENERAL - Review of Systems Review Of Systems: ROS reveals no pertinent complaints other than HPI. ED EXAM, NEURO - Physical Exam Exam: See Below (See dictation) Course - Vital Signs Last Recorded V/S: Last Vital Signs Temp 97.6 F 01/20/19 12:59 Pulse 101 H 01/20/19 12:59 Resp 18 01/20/19 12:59 BP 110/74 01/20/19 12:59 Pulse Ox 100 01/20/19 12:59 - Orders/Labs/Meds Orders: Active Orders 24 hr Category Date Time Status EKG Documentation Completion [RC] STAT Care 01/20/19 12:56 Active UA RFX ROSCOE AND CULT IF INDIC [URIN] Stat Lab 01/20/19 12:56 Ordered Labs: Laboratory Tests 01/20/19 01/20/19 01/20/19 Range/Units 13:15 13:15 13:15 WBC 6.58 (4.0-11.0) K/uL RBC 4.62 (4.30-5.90) M/uL Hgb 14.1 (12.0-16.0) g/dL Hct 42.2 (36.0-46.0) % MCV 91.3 (80.0-98.0) fL MCH 30.5 (27.0-32.0) pg MCHC 33.4 (31.0-37.0) g/dL RDW Std Deviation 43.8 (28.0-62.0) fl RDW Coeff of Annette 13 (11.0-15.0) % Plt Count 260 (150-400) K/uL MPV 10.40 (7.40-12.00) fL Neut % (Auto) 71.3 (48.0-80.0) % Lymph % (Auto) 20.7 (16.0-40.0) % Gentry % (Auto) 6.2 (0.0-15.0) % Eos % (Auto) 1.5 (0.0-7.0) % Baso % (Auto) 0.3 (0.0-1.5) % Neut # (Auto) 4.7 (1.4-5.7) K/uL Lymph # (Auto) 1.4 (0.6-2.4) K/uL Gentry # (Auto) 0.4 (0.0-0.8) K/uL Eos # (Auto) 0.1 (0.0-0.7) K/uL Baso # (Auto) 0.0 (0.0-0.1) K/uL Nucleated RBC % 0.0 /100WBC Nucleated RBCs # 0 K/uL ESR 9 (0-19) mm/hr Sodium 140 (136-145) mmol/L Potassium 4.3 (3.5-5.1) mmol/L Chloride 104 (98-107) mmol/L Carbon Dioxide 29.0 (21.0-32.0) mmol/L BUN 14 (7.0-18.0) mg/dL Creatinine 0.6 (0.6-1.0) mg/dL Est Cr Clr Drug Dosing 126.99 mL/min Estimated GFR (MDRD) > 60.0 ml/min Glucose 102 (74-106) mg/dL Calcium 9.3 (8.5-10.1) mg/dL Total Bilirubin 0.4 (0.2-1.0) mg/dL AST 10 L (15-37) IU/L ALT 29 (14-63) IU/L Alkaline Phosphatase 80 (46-116) U/L Total Protein 7.8 (6.4-8.2) g/dL Albumin 4.2 (3.4-5.0) g/dL Globulin 3.6 (2.6-4.0) g/dL Albumin/Globulin Ratio 1.2 (0.9-1.6) Meds: Medications Discontinued Medications Generic Name Dose Route Start Last Admin Trade Name Freq PRN Reason Stop Dose Admin Sodium Chloride 1,000 mls @ 999 mls/hr 01/20/19 12:56 01/20/19 13:26 Normal Saline IV 01/20/19 13:56 999 mls/hr STAT ONE Administration Ketorolac Tromethamine 30 mg 01/20/19 12:57 01/20/19 13:26 Toradol IVPUSH 01/20/19 12:58 30 mg ONETIME ONE Administration Lorazepam 1 mg 01/20/19 13:18 01/20/19 13:47 Ativan IVPUSH 01/20/19 13:19 Not Given ONETIME ONE Ondansetron HCl 4 mg 01/20/19 14:30 01/20/19 14:41 Zofran IVPUSH 01/20/19 14:31 4 mg ONETIME ONE Administration Departure - Departure Time of Disposition: 14:30 Disposition: Home, Self-Care 01 Clinical Impression: Muscle spasms of neck, Paresthesia, History of anxiety - Discharge Information Instructions: Muscle Cramps and Spasms, [id number], Paresthesia, [id number] Referrals: Isatu Sanchez, [Primary Care Provider] - Forms: ED Department Discharge Additional Instructions: The following information is given to patients seen in the emergency department who are being discharged to home. This information is to outline your options for follow-up care. We provide all patients seen in our emergency department with a follow-up referral. The need for follow-up, as well as the timing and circumstances, are variable depending upon the specifics of your emergency department visit. If you don't have a primary care physician on staff, we will provide you with a referral. We always advise you to contact your personal physician following an emergency department visit to inform them of the circumstance of the visit and for follow-up with them and/or the need for any referrals to a consulting specialist. The emergency department will also refer you to a specialist when appropriate. This referral assures that you have the opportunity for follow-up care with a specialist. All of these measure are taken in an effort to provide you with optimal care, which includes your follow-up. Under all circumstances we always encourage you to contact your private physician who remains a resource for coordinating your care. When calling for follow-up care, please make the office aware that this follow-up is from your recent emergency room visit. If for any reason you are refused follow-up, please contact the [facility] Emergency Department at and asked to speak to the emergency department charge nurse. [facility] [address] [place] [address] [facility] [address] [place] [address] 1. Gentle heat and stretching of the painful areas. 2. Tylenol as needed for pain. Otherwise take the prescribed Flexeril as directed. Flexeril as a muscle relaxant, this medication may cause drowsiness a do not take it will driving her needing to be functioning outside of the house. 3. Please follow-up with your primary care provider as we discussed. Return to the ED as needed and as discussed. - My Orders Last 24 Hours: My Active Orders 01/20/19 12:56 EKG Documentation Completion [RC] STAT UA RFX ROSCOE AND CULT IF INDIC [URIN] Stat - Assessment/Plan Last 24 Hours: My Active Orders 01/20/19 12:56 EKG Documentation Completion [RC] STAT UA RFX ROSCOE AND CULT IF INDIC [URIN] Stat
[2019-01-20] MEDS ORDERED: LORazepam 2 MG/ML SDV IVPUSH ONE (13:18)
[2019-01-20 13:47] LABS: CHLORIDE,CL 104 mmol/L (98-107); SODIUM,NA 140 mmol/L (136-145)
--- NOTE | 2019-01-20 14:02 | CT ---
Indication: HEADACHE, TINGLING AND NUMB FACE FOR 2 DAYS WITH NECK PAIN Technique: Noncontrast axial CT of the cervical spine with coronal and sagittal reformats are provided. Comparison: No prior studies available for comparison at this institution. Findings: There is reversal of cervical lordosis which may be postural or due to muscle spasm. Small anterior osteophytes at C5 6 and C6-7. Show disc osteophyte complexes at C5-6 and C6-7 without spinal canal stenosis. Uncovertebral hypertrophy at C5-6 and C6-7 bilaterally without neural foraminal narrowing. Mild degenerative changes of the left 1st rib costovertebral junction. Prevertebral soft tissues, cervical airway, dens and lateral masses are within normal limits. Mild mucosal thickening in the left sphenoid sinus. Impression: 1. No convincing radiographic evidence of acute osseous injury. 2. Scattered degenerative changes of the cervical spine. Please note that all CT scans at this facility use dose modulation, iterative reconstruction, and/or weight-based dosing when appropriate to reduce radiation dose to as low as reasonably achievable. Dictated by Haile Lopez MD @ Jan 20 2019 1:56PM Signed by Dr. Haile Lopez @ Jan 20 2019 2:01PM
--- NOTE | 2019-01-20 14:04 | CT ---
Indication: HEADACHE, TINGLING AND NUMB FACE FOR 2 DAYS WITH NECK PAIN Technique: CT of the head without contrast. Coronal and sagittal reformatted images. Bone and soft tissue algorithm. Comparison: No prior studies available for comparison at this institution. Findings: No acute intracranial hemorrhage or extra-axial collection. No evidence of acute cortical infarction. No mass effect or midline shift. Normal cerebral volume. The ventricles are normal in size, shape and contour. There is normal hinton and white matter differentiation. The orbital contents are normal. Paranasal sinuses are well aerated. Mastoid air cells are clear. No calvarial fractures. No lytic or sclerotic osseous lesions within the calvarium or skull base. Scalp and other imaged soft tissue structures are normal. Impression: No acute intracranial abnormality. Please note that all CT scans at this facility use dose modulation, iterative reconstruction, and/or weight-based dosing when appropriate to reduce radiation dose to as low as reasonably achievable. Dictated by Haile Lopez MD @ Jan 20 2019 2:01PM Signed by Dr. Haile Lopez @ Jan 20 2019 2:03PM
[2019-01-20] MEDS ORDERED: Ondansetron 4 MG/2 ML SDV IVPUSH ONE (14:30)
[2019-01-20] MEDS ORDERED: methylPREDNISolone Sodium Succinate 125 MG/2 ML SDV IVPUSH ONE (14:44)
== END 2019-01-20 15:14 | disposition home or self-care (01) ==
LOC: MW.ED 12:40
DX: M62.838 Other muscle spasm (principal); R20.2 Paresthesia of skin; F41.9 Anxiety disorder, unspecified; Z88.2 Allergy status to sulfonamides; Z79.899 Other long term (current) drug therapy
CPT/HCPCS: 36415; 70450; 72125; 80053; 81003; 85025; 85652; 93005; 96361; 96374; 96375; 99284; J1885; J2405; J2930; J7040

== ENCOUNTER 2019-10-02 11:59 | Emergency (ER) | payer OTHER ==
[2019-10-02] MEDS ORDERED: Ketorolac 60 MG/2 ML SDV IM ONE (12:23)
--- NOTE | 2019-10-02 12:23 | EDM.PDOC ---
ED HPI GENERAL MEDICAL PROBLEM - General Chief Complaint: Back Pain or Injury Stated Complaint: UPPER BACK PAIN Time Seen by Provider: 10/02/19 12:23 Source of Information: Reports: Patient History Limitations: Reports: No Limitations - History of Present Illness INITIAL COMMENTS - FREE TEXT/NARRATIVE: HISTORY AND PHYSICAL: History of present illness: Patient is a 39-year-old female presents the ED with complaint of left upper back pain. She states that yesterday she was reaching for something on a shelf when she felt a pop and a burning pain in her left upper back. She states the pain radiates up to her left neck and down her left arm. She has not been taking nothing [id number] for her symptoms. Review of systems: As per history of present illness and below otherwise all systems reviewed and negative. Past medical history: As per history of present illness and as reviewed below otherwise noncontributory. Surgical history: As per history of present illness and as reviewed below otherwise noncontributory. Social history: No reported history of drug or alcohol abuse. Family history: As per history of present illness and as reviewed below otherwise noncontributory. Physical exam: General: Patient sitting comfortably in no acute distress and nontoxic appearing HEENT: Atraumatic, normocephalic, pupils reactive, negative for conjunctival pallor or scleral icterus, mucous membranes moist, throat clear, neck supple, nontender, trachea midline. No meningeal signs. Lungs: Clear to auscultation, breath sounds equal bilaterally, chest nontender. Heart: S1S2, regular, negative for clicks, rubs, or overt murmur. Abdomen: Soft, nondistended, nontender. Negative for masses or hepatosplenomegaly. Negative for costovertebral tenderness. No rigidity, rebound , guarding. Pelvis: Stable nontender. Genitourinary: Deferred. Rectal: Deferred. Spine: No vertebral tenderness or step-offs to palpation. Palpation along left paraspinal and trapezius muscle, swelling and muscle spasm noted. Extremities: Atraumatic, negative for cords or calf pain. Neurovascular unremarkable. Neuro: Awake, alert, oriented. Cranial nerves II through XII unremarkable. Cerebellum unremarkable. Motor and sensory unremarkable throughout. Exam nonfocal. Notes: Diagnostics: None Therapeutics: Toradol 60 mg IM Prescriptions: Diclofenac Flexeril Impression: Upper back pain Plan: Take medication as instructed, do not take flexeril while driving or with alcohol as it may make you drowsy Follow up with primary care provider Return to ED as needed as discussed Definitive disposition and diagnosis as appropriate pending reevaluation and review of above. left sholder Pain Score (Numeric/FACES): 6 - Related Data Allergies Allergy/AdvReac Type Severity Reaction Status Date / Time Sulfa (Sulfonamide Allergy Diarrhea Verified 10/02/19 12:08 Antibiotics) Home Meds: Home Meds LORazepam [Ativan] 1 mg PO TID PRN 02/09/18 [History] busPIRone [Buspar] 7.5 mg PO BID 02/09/18 [History] Cyclobenzaprine [Flexeril] 10 mg PO BID #12 tab 10/02/19 [Rx] Diclofenac Sodium [Voltaren] 75 mg PO BIDMEALS #20 tab.cr 10/02/19 [Rx] Past Medical History - Past Health History Medical/Surgical History: Denies Medical/Surgical History HEENT History: Reports: None Cardiovascular History: Reports: None Respiratory History: Reports: None Gastrointestinal History: Reports: None Genitourinary History: Reports: Renal Calculus EDDY CURRENT INSPECTOR History: Reports: None Musculoskeletal History: Reports: None Neurological History: Reports: None Psychiatric History: Reports: Depression Endocrine/Metabolic History: Reports: None Hematologic History: Reports: None Immunologic History: Reports: None Oncologic (Cancer) History: Reports: None Dermatologic History: Reports: None - Infectious Disease History Infectious Disease History: Reports: Chicken Pox - Past Surgical History Head Surgeries/Procedures: Reports: None HEENT Surgical History: Reports: Tonsillectomy Cardiovascular Surgical History: Reports: None Respiratory Surgical History: Reports: None GI Surgical History: Reports: Bariatric Procedure, Cholecystectomy, Other (See Below) Other GI Surgeries/Procedures: gastic sleeve Female Surgical History: Reports: Hysterectomy Endocrine Surgical History: Reports: None Neurological Surgical History: Reports: None Musculoskeletal Surgical History: Reports: None Oncologic Surgical History: Reports: None Dermatological Surgical History: Reports: None Social & Family History - Family History Family Medical History: Noncontributory - Tobacco Use Smoking Status *Q: Never Smoker Second Hand Smoke Exposure: No - Caffeine Use Caffeine Use: Reports: Coffee - Recreational Drug Use Recreational Drug Use: No ED ROS GENERAL - Review of Systems Review Of Systems: Comprehensive ROS is negative, except as noted in HPI. ED EXAM, UPPER BACK/NECK PAIN - Physical Exam Exam: See Below (See dictation) Course - Vital Signs Last Recorded V/S: Last Vital Signs Temp 97.3 F 10/02/19 12:08 Pulse 78 10/02/19 12:08 Resp 18 10/02/19 12:08 BP 109/68 10/02/19 12:08 Pulse Ox 99 10/02/19 12:08 - Orders/Labs/Meds Meds: Medications Discontinued Medications Generic Name Dose Route Start Last Admin Trade Name Marilee PRN Reason Stop Dose Admin Ketorolac Tromethamine 60 mg 10/02/19 12:23 10/02/19 12:40 Toradol IM 10/02/19 12:24 60 mg ONETIME ONE Administration Departure - Departure Time of Disposition: 12:49 Disposition: Home, Self-Care 01 Condition: Good Clinical Impression: Back pain - Discharge Information Prescriptions: Cyclobenzaprine [Flexeril] 10 mg PO BID #12 tab Diclofenac Sodium [Voltaren] 75 mg PO BIDMEALS #20 tab.cr Instructions: Acute Back Pain, Adult Referrals: Milton Thomas MD [Primary Care Provider] - Forms: ED Department Discharge Additional Instructions: The following information is given to patients seen in the emergency department who are being discharged to home. This information is to outline your options for follow-up care. We provide all patients seen in our emergency department with a follow-up referral. The need for follow-up, as well as the timing and circumstances, are variable depending upon the specifics of your emergency department visit. If you don't have a primary care physician on staff, we will provide you with a referral. We always advise you to contact your personal physician following an emergency department visit to inform them of the circumstance of the visit and for follow-up with them and/or the need for any referrals to a consulting specialist. The emergency department will also refer you to a specialist when appropriate. This referral assures that you have the opportunity for follow-up care with a specialist. All of these measure are taken in an effort to provide you with optimal care, which includes your follow-up. Under all circumstances we always encourage you to contact your private physician who remains a resource for coordinating your care. When calling for follow-up care, please make the office aware that this follow-up is from your recent emergency room visit. If for any reason you are refused follow-up, please contact the [facility] Emergency Department at and asked to speak to the emergency department charge nurse. [facility] [address] [place] [address] [id number] [address] [id number] Take medication as instructed, do not take flexeril while driving or with alcohol as it may make you drowsy Follow up with primary care provider Return to ED as needed as discussed Sepsis Event Note - Evaluation Sepsis Screening Result: No Definite Risk - Focused Exam Vital Signs: Vital Signs Temp Pulse Resp BP Pulse Ox 10/02/19 12:08 97.3 F 78 18 109/68 99 Date Exam was Performed: 10/02/19 Time Exam was Performed: 13:10
== END 2019-10-02 13:21 | disposition home or self-care (01) ==
LOC: MW.ED 11:59
DX: M54.6 Pain in thoracic spine (principal); F32.9 Major depressive disorder, single episode, unspecified; Z88.2 Allergy status to sulfonamides; Z79.899 Other long term (current) drug therapy
CPT/HCPCS: 96372; 99283; J1885

== ENCOUNTER 2020-03-17 21:52 | Emergency (ER) | payer SELFPAY ==
[2020-03-17] MEDS ORDERED: Sodium Chloride 0.9% 10 ML Syringe FLUSH PRN (22:01)
[2020-03-17] MEDS ORDERED: Sodium Chloride 0.9% 2.5 ML Syringe FLUSH PRN (22:01)
--- NOTE | 2020-03-17 22:11 | EDM.PDOC ---
ED [facility] GENERAL MEDICAL PROBLEM - General Stated Complaint: IRREGULAR HEART BEAT/CHEST PAIN Time Seen by Provider: 03/17/20 22:11 Source of Information: Reports: Patient History Limitations: Reports: No Limitations - History of Present Illness INITIAL COMMENTS - FREE TEXT/NARRATIVE: 39-year-old female with history of anxiety presents with palpitations that have been intermittent over the last 3 days. Associated with shortness of breath, chest discomfort. She denies nausea, vomiting, sweats. ROS: A 10-point review of systems, other than pertinent positives and negatives as stated per HPI, is otherwise negative Past medical history: No additional pertinent history Past Surgical history: No additional pertinent history Social history: No additional pertinent history Family history: No additional pertinent history PHYSICAL EXAM General: AOx4, GCS = 15, No distress HEENT: dry mucous membrane Neck: supple, no meningismus, no Kernig or Brudzinski Cardiac: S1S2 RRR Respiratory: CTAB, no crackles or rales, no wheezing Abdomen: Soft, nontender, no rebound or guarding, nondistended, no pulsatile mass. Back: nontender Musculoskeletal: NVI distally, no deformity Neuro: No focal deficits, CN 2 - 12 WNL. - Related Data Allergies Allergy/AdvReac Type Severity Reaction Status Date / Time Sulfa (Sulfonamide Allergy Diarrhea Verified 03/17/20 22:14 Antibiotics) Home Meds: Home Meds LORazepam [Ativan] 1 mg PO TID PRN 02/09/18 [History] busPIRone [Buspar] 7.5 mg PO BID 02/09/18 [History] cephALEXin [Keflex] 500 mg PO TID #15 capsule 03/17/20 [Rx] Past Medical History - Past Health History Medical/Surgical History: Denies Medical/Surgical History HEENT History: Reports: None Cardiovascular History: Reports: None Respiratory History: Reports: None Gastrointestinal History: Reports: None Genitourinary History: Reports: Renal 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 Musculoskeletal History: Reports: None Neurological History: Reports: None Psychiatric History: Reports: Depression Endocrine/Metabolic History: Reports: None Hematologic History: Reports: None Immunologic History: Reports: None Oncologic (Cancer) History: Reports: None Dermatologic History: Reports: None - Infectious Disease History Infectious Disease History: Reports: Chicken Pox - Past Surgical History Head Surgeries/Procedures: Reports: None HEENT Surgical History: Reports: Tonsillectomy Cardiovascular Surgical History: Reports: None Respiratory Surgical History: Reports: None GI Surgical History: Reports: Bariatric Procedure, Cholecystectomy, Other (See Below) Other GI Surgeries/Procedures: gastic sleeve Female Surgical History: Reports: Hysterectomy Endocrine Surgical History: Reports: None Neurological Surgical History: Reports: None Musculoskeletal Surgical History: Reports: None Oncologic Surgical History: Reports: None Dermatological Surgical History: Reports: None Social & Family History - Family History Family Medical History: Noncontributory - Caffeine Use Caffeine Use: Reports: Coffee ED ROS GENERAL - Review of Systems Review Of Systems: Comprehensive ROS is negative, except as noted in HPI. ED EXAM, GENERAL - Physical Exam Exam: See Below (See dictation) EKG INTERPRETATION EKG Interpretation Comments: 85 Bpm, NSR, normal QRS interval, no STEMI. EKG and rhythm strip interpreted by me at 1005 Course - Vital Signs Last Recorded V/S: Last Vital Signs Temp 97.0 F 03/17/20 22:11 Pulse 86 03/17/20 22:11 Resp 16 03/17/20 22:11 BP 106/66 03/17/20 22:11 Pulse Ox 98 03/17/20 22:11 - Orders/Labs/Meds Orders: Active Orders 24 hr Category Date Time Status Cardiac Monitoring [RC] . DIRECTED Care 03/17/20 22:01 Active EKG Documentation Completion [RC] STAT Care 03/17/20 22:02 Active Sodium Chloride 0.9% [Saline Flush] Med 03/17/20 22:01 Active 10 ml FLUSH ASDIRECTED PRN Sodium Chloride 0.9% [Saline Flush] Med 03/17/20 22:01 Active 2.5 ml FLUSH ASDIRECTED PRN Saline Lock Insert [OM.PC] Stat Oth 03/17/20 22:01 Ordered Medication Orders Sodium Chloride (Saline Flush) 10 ml FLUSH ASDIRECTED PRN PRN Reason: Keep Vein Open Sodium Chloride (Saline Flush) 2.5 ml FLUSH ASDIRECTED PRN PRN Reason: Keep Vein Open Labs: Laboratory Tests 03/17/20 03/17/20 03/17/20 Range/Units 22:15 22:15 22:35 WBC 7.53 (4.0-11.0) K/uL RBC 4.14 L (4.30-5.90) M/uL Hgb 12.2 (12.0-16.0) g/dL Hct 37.2 (36.0-46.0) % MCV 89.9 (80.0-98.0) fL MCH 29.5 (27.0-32.0) pg MCHC 32.8 (31.0-37.0) g/dL RDW Std Deviation 44.6 (28.0-62.0) fl RDW Coeff of Annette 14 (11.0-15.0) % Plt Count 277 (150-400) K/uL MPV 10.50 (7.40-12.00) fL Neut % (Auto) 63.8 (48.0-80.0) % Lymph % (Auto) 23.8 (16.0-40.0) % [place] % (Auto) 9.7 (0.0-15.0) % Eos % (Auto) 2.3 (0.0-7.0) % Baso % (Auto) 0.4 (0.0-1.5) % Neut # (Auto) 4.8 (1.4-5.7) K/uL Lymph # (Auto) 1.8 (0.6-2.4) K/uL [place] # (Auto) 0.7 (0.0-0.8) K/uL Eos # (Auto) 0.2 (0.0-0.7) K/uL Baso # (Auto) 0.0 (0.0-0.1) K/uL Nucleated RBC % 0.0 /100WBC Nucleated RBCs # 0 K/uL Sodium 141 (136-145) mmol/L Potassium 4.1 (3.5-5.1) mmol/L Chloride 104 (98-107) mmol/L Carbon Dioxide 25.2 (21.0-32.0) mmol/L BUN 15 (7.0-18.0) mg/dL Creatinine 0.9 (0.6-1.0) mg/dL Est Cr Clr Drug Dosing 83.82 mL/min Estimated GFR (MDRD) > 60.0 ml/min Glucose 102 (74-106) mg/dL Calcium 8.5 (8.5-10.1) mg/dL Magnesium 2.1 (1.8-2.4) mg/dL Total Bilirubin 0.3 (0.2-1.0) mg/dL AST 12 L (15-37) IU/L ALT 21 (14-63) IU/L Alkaline Phosphatase 75 (46-116) U/L Troponin I < 0.050 (0.000-0.056) ng/mL Total Protein 7.2 (6.4-8.2) g/dL Albumin 3.9 (3.4-5.0) g/dL Globulin 3.3 (2.6-4.0) g/dL Albumin/Globulin Ratio 1.2 (0.9-1.6) Free T4 1.20 (0.76-1.46) ng/dL TSH 3rd Generation 1.24 (0.36-3.74) uIU/mL Urine Color ORANGE Urine Appearance CLEAR Urine pH 6.5 (5.0-8.0) Ur Specific [place] 1.020 (1.001-1.035) Urine Protein 100 H (NEGATIVE) mg/dL Urine Glucose (UA) 250 H (NEGATIVE) mg/dL Urine Ketones 15 H (NEGATIVE) mg/dL Urine Occult Blood NEGATIVE (NEGATIVE) Urine Nitrite POSITIVE H (NEGATIVE) Urine Bilirubin MODERATE H (NEGATIVE) Urine Ictotest POSITIVE Urine Urobilinogen >=8.0 H (<2.0) EU/dL Ur Leukocyte Esterase LARGE H (NEGATIVE) Urine RBC 0-2 (0-2/HPF) Urine WBC 4-6 (0-5/HPF) Ur Epithelial Cells OCCASIONAL (NONE-FEW) Urine Bacteria 1+ H (NEGATIVE) Urine Mucus LIGHT (NONE-MOD) Meds: Medications Generic Name Dose Route Start Last Admin Trade Name Freq PRN Reason Stop Dose Admin Sodium Chloride 10 ml 03/17/20 22:01 Saline Flush FLUSH ASDIRECTED PRN Keep Vein Open Sodium Chloride 2.5 ml 03/17/20 22:01 Saline Flush FLUSH ASDIRECTED PRN Keep Vein Open - Re-Assessments/Exams Free Text/Narrative Re-Assessment/Exam: 03/17/20 23:52 After prolonged observation in the ER, patient improved clinically and is currently stable for discharge. I performed a repeat exam and did not appreciate new abnormal findings. Patient exhibits normal vital signs and has a normal gait. I advised the patient to return to the ER for reevaluation if symptoms worsened, including fever, worsening pain, or any other worrisome symptoms. I instructed the patient to follow up with their PCP within 2-3 days. MEDICAL DECISION MAKING: I reviewed the patients past medical records, lab and radiographic findings. I discussed the case with the patient. My differential diagnosis included: Tachyarrhythmia. EKG did not reveal any abnormalities today. Urine demonstrated a UTI, stable for outpatient antibiotic treatment. Otherwise she did not demonstrate anemia or thyroid abnormalities or other electrolyte abnormalities. Patient is stable for discharge with outpatient follow-up with PCP for Holter monitoring. Departure - Departure Time of Disposition: 23:53 Disposition: Home, Self-Care 01 Condition: Good Clinical Impression: Palpitations, UTI (urinary tract infection) - Discharge Information *PRESCRIPTION DRUG MONITORING PROGRAM REVIEWED*: Not Applicable *COPY OF PRESCRIPTION DRUG MONITORING REPORT IN PATIENT KARLEE: Not Applicable Prescriptions: cephALEXin [Keflex] 500 mg PO TID #15 capsule Instructions: Antibiotic Medicine, Adult, [id number], Urinary Tract Infection, Adult, Palpitations, [id number] Referrals: Milton Thomas MD [Primary Care Provider] - 3 Days Additional Instructions: The following information is given to patients seen in the emergency department who are being discharged to home. This information is to outline your options for follow-up care. We provide all patients seen in our emergency department with a follow-up referral. The need for follow-up, as well as the timing and circumstances, are variable de pending upon the specifics of your emergency department visit. If you don't have a primary care physician on staff, we will provide you with a referral. We always advise you to contact your personal physician following an emergency department visit to inform them of the circumstance of the visit and for follow-up with them and/or the need for any referrals to a consulting specialist. The emergency department will also refer you to a specialist when appropriate. This referral assures that you have the opportunity for follow-up care with a specialist. All of these measure are taken in an effort to provide you with optimal care, which includes your follow-up. Under all circumstances we always encourage you to contact your private physician who remains a resource for coordinating your care. When calling for follow-up care, please make the office aware that this follow-up is from your recent emergency room visit. If for any reason you are refused follow-up, please contact the [facility] Emergency Department at and asked to speak to the emergency department charge nurse. If you do not have a primary care doctor, please follow up with the clinics below within 3-5 days. [facility] [address] [place] [address] [id number] [facility] [address] [place] [id number] Sepsis Event Note (ED) - Focused Exam Vital Signs: Vital Signs Temp Pulse Resp BP Pulse Ox 03/17/20 22:11 97.0 F 86 16 106/66 98 - My Orders Last 24 Hours: My Active Orders 03/17/20 22:01 Cardiac Monitoring [RC] . DIRECTED Sodium Chloride 0.9% [Saline Flush] 10 ml FLUSH ASDIRECTED PRN Sodium Chloride 0.9% [Saline Flush] 2.5 ml FLUSH ASDIRECTED PRN Saline Lock Insert [OM.PC] Stat 03/17/20 22:02 EKG Documentation Completion [RC] STAT - Assessment/Plan Last 24 Hours: My Active Orders 03/17/20 22:01 Cardiac Monitoring [RC] . DIRECTED Sodium Chloride 0.9% [Saline Flush] 10 ml FLUSH ASDIRECTED PRN Sodium Chloride 0.9% [Saline Flush] 2.5 ml FLUSH ASDIRECTED PRN Saline Lock Insert [OM.PC] Stat 03/17/20 22:02 EKG Documentation Completion [RC] STAT
--- NOTE | 2020-03-17 22:50 | CR ---
INDICATION: palpitations TECHNIQUE: Chest 1 view. COMPARISON: None. FINDINGS: Cardiovascular and mediastinum: Heart size and vasculature are normal in caliber and appearance. Mediastinum is within normal limits. Lungs and pleural space: Lungs are clear. No sign of infiltrate or mass. No sign of pleural effusion. No pneumothorax. Bones and soft tissues: No significant findings. IMPRESSION: Unremarkable chest. Dictated by: Haile Begum MD @ 03/17/2020 22:49:22 (Electronically Signed)
[2020-03-17 22:51] LABS: BLOOD UREA NITROGEN,BUN 15 mg/dL (7.0-18.0); CARBON DIOXIDE,CO2 25.2 mmol/L (21.0-32.0); CHLORIDE,CL 104 mmol/L (98-107); GLUCOSE RANDOM 102 mg/dL (74-106); POTASSIUM,K 4.1 mmol/L (3.5-5.1); SODIUM,NA 141 mmol/L (136-145)
== END 2020-03-18 | disposition home or self-care (01) ==
LOC: MW.ED 21:52
DX: R00.2 Palpitations (principal); N39.0 Urinary tract infection, site not specified; Z88.2 Allergy status to sulfonamides; Z79.899 Other long term (current) drug therapy
CPT/HCPCS: 36415; 71045; 71045-26; 80053; 81001; 83735; 84439; 84443; 84484; 85025; 93005; 99285-25

== ENCOUNTER 2021-12-12 21:26 | Emergency (ER) | payer BC ==
[2021-12-12] MEDS ORDERED: Sodium Chloride 0.9% 1,000 ML IV ONE (22:00)
[2021-12-12] MEDS ORDERED: HYDROmorphone 2 MG/ML Syringe IVPUSH ONE (22:01)
[2021-12-12] MEDS ORDERED: Metoclopramide 10 MG/2 ML SDV IVPUSH STA (22:02)
[2021-12-12 22:37] LABS: BLOOD UREA NITROGEN,BUN 19 mg/dL (7.0-18.0); CHLORIDE,CL 106 mmol/L (98-107); GLUCOSE RANDOM 94 mg/dL (74-106); LIPASE 105 U/L (73-393); POTASSIUM,K 4.1 mmol/L (3.5-5.1); SODIUM,NA 139 mmol/L (136-145)
[2021-12-12] MEDS ORDERED: cefTRIAXone 1 GM in Sodium Chloride 0.9% 50 ML IV ONE (23:07)
== END 2021-12-13 00:09 | disposition home or self-care (01) ==
LOC: MW.ED 21:26
DX: N39.0 Urinary tract infection, site not specified (principal); Z88.2 Allergy status to sulfonamides
CPT/HCPCS: 36415; 80053; 81001; 83690; 85025; 87086; 96365; 96375; 99284; J0696; J1170; J2765; J7030

== ENCOUNTER 2022-07-22 12:41 | Emergency (ER) | payer BC ==
[2022-07-22] MEDS ORDERED: Sodium Chloride 0.9% 2.5 ML Syringe FLUSH PRN (13:05)
[2022-07-22] MEDS ORDERED: Sodium Chloride 0.9% 10 ML Syringe FLUSH PRN (13:05)
[2022-07-22 13:41] LABS: CARBON DIOXIDE,CO2 27.7 mmol/L (21.0-32.0); POTASSIUM,K 3.9 mmol/L (3.5-5.1)
[2022-07-22 14:17] LABS: CORONAVIRUS COVID-19 NAA NEGATIVE (NEGATIVE); INFLUENZA A NAA NEGATIVE (NEGATIVE); INFLUENZA B NAA NEGATIVE (NEGATIVE)
== END 2022-07-22 14:47 | disposition home or self-care (01) ==
LOC: MW.ED 12:41
DX: R06.4 Hyperventilation (principal); J98.4 Other disorders of lung; J44.9 Chronic obstructive pulmonary disease, unspecified; Z88.2 Allergy status to sulfonamides; Z20.822 Contact with and (suspected) exposure to COVID-19
CPT/HCPCS: 0240U; 36415; 70450; 71045; 80053; 83690; 84484; 85025; 85379; 85610; 93005; 99285; J3490

== ENCOUNTER 2022-09-17 15:37 | Emergency (ER) | payer OTHER, BC | END 2022-09-17 19:03 | disposition home or self-care (01) | LOC: MW.ED 15:37 | DX: S06.0X0A Concussion without loss of consciousness, initial encounter (principal); S16.1XXA Strain of muscle, fascia and tendon at neck level, initial encounter; Z88.5 Allergy status to narcotic agent; Z88.2 Allergy status to sulfonamides; W01.0XXA Fall on same level from slipping, tripping and stumbling without subsequent striking against object, initial encounter | CPT/HCPCS: 99283 ==

== ENCOUNTER 2022-09-26 00:20 | Emergency (ER) | payer BC, OTHER ==
[2022-09-26] MEDS ORDERED: Ondansetron 4 MG/2 ML SDV IVPUSH ONE (00:41)
[2022-09-26] MEDS ORDERED: Sodium Chloride 0.9% 2.5 ML Syringe FLUSH PRN (00:41)
[2022-09-26] MEDS ORDERED: Sodium Chloride 0.9% 10 ML Syringe FLUSH PRN (00:41)
[2022-09-26] MEDS ORDERED: Sodium Chloride 0.9% 1,000 ML IV ONE (00:41)
[2022-09-26] MEDS ORDERED: Ketorolac 30 MG/ML SDV IVPUSH ONE (00:42)
[2022-09-26 01:23] LABS: CARBON DIOXIDE,CO2 28.2 mmol/L (21.0-32.0)
[2022-09-26] MEDS ORDERED: fentaNYL 50 MCG/ML SDV IVPUSH ONE (01:58)
[2022-09-26] MEDS ORDERED: Tamsulosin 0.4 MG Cap.ER PO ONE (02:07)
== END 2022-09-26 03:38 | disposition home or self-care (01) ==
LOC: MW.ED 00:20
DX: N13.2 Hydronephrosis with renal and ureteral calculous obstruction (principal); Z88.5 Allergy status to narcotic agent; Z88.2 Allergy status to sulfonamides; Z79.899 Other long term (current) drug therapy
CPT/HCPCS: 36415; 74176; 80053; 81001; 85025; 96361; 96374; 96375; 99284; A9270; J1885; J2405; J3010; J3490; J7030

== ENCOUNTER 2023-03-03 17:01 | Emergency (ER) | payer BC, OTHER ==
[2023-03-03] MEDS ORDERED: Sodium Chloride 0.9% 10 ML Syringe FLUSH PRN (17:29)
[2023-03-03] MEDS ORDERED: Sodium Chloride 0.9% 2.5 ML Syringe FLUSH PRN (17:29)
[2023-03-03] MEDS ORDERED: Sodium Chloride 0.9% 500 ML IV SCH (17:30)
[2023-03-03 17:48] LABS: BASOPHILS PERCENT AUTO 0.3 % (0.0-1.5); EOSINOPHILS ABSOLUTE AUTO 0.1 K/uL (0.0-0.7); EOSINOPHILS PERCENT AUTO 0.8 % (0.0-7.0); HEMATOCRIT 39.4 % (36.0-46.0); HEMOGLOBIN 12.8 g/dL (12.0-16.0); LYMPHOCYTES ABSOLUTE AUTO 1.5 K/uL (0.6-2.4); LYMPHOCYTES PERCENT AUTO 16.9 % (16.0-40.0); MEAN CORPUSCULAR HEMOGLOBIN 29.2 pg (27.0-32.0); MEAN CORPUSCULAR HGB CONC 32.5 g/dL (31.0-37.0); MEAN CORPUSCULAR VOLUME 89.7 fL (80.0-98.0); MONOCYTES ABSOLUTE AUTO 0.7 K/uL (0.0-0.8); MONOCYTES PERCENT AUTO 7.9 % (0.0-15.0); NEUTROPHILS ABSOLUTE AUTO 6.5 K/uL (1.4-5.7); NEUTROPHILS PERCENT AUTO 74.1 % (48.0-80.0); NRBC ABSOLUTE 0 K/uL; PLATELET COUNT,PLT 379 K/uL (150-400); RED BLOOD CELL COUNT 4.39 M/uL (4.30-5.90); WHITE BLOOD CELL COUNT,WBC 8.74 K/uL (4.0-11.0)
[2023-03-03 18:29] LABS: INR 0.97 (0.86-1.11)
[2023-03-03 18:33] LABS: A/G RATIO 0.9 (0.9-1.6); ALANINE AMINOTRANSFERASE,ALT 18 IU/L (14-63); ALBUMIN 3.7 g/dL (3.4-5.0); ALKALINE PHOSPHATASE 83 U/L (46-116); ASPARTATE AMNIOTRANSFERASE,AST 9 IU/L (15-37); BILIRUBIN TOTAL 0.3 mg/dL (0.2-1.0); BLOOD UREA NITROGEN,BUN 17 mg/dL (7.0-18.0); CARBON DIOXIDE,CO2 27.1 mmol/L (21.0-32.0); CHLORIDE,CL 102 mmol/L (98-107); CREATININE 0.9 mg/dL (0.6-1.0); EST CRCL DRUG DOSING (CG) 75.45 mL/min; GLUCOSE RANDOM 92 mg/dL (74-106); POTASSIUM,K 4.1 mmol/L (3.5-5.1); PROTEIN TOTAL,TP 7.7 g/dL (6.4-8.2); SODIUM,NA 138 mmol/L (136-145)
[2023-03-03 18:34] LABS: ESTIMATED GFR 81 mL/min (>60)
[2023-03-03] MEDS ORDERED: Metoclopramide 10 MG/2 ML SDV IVPUSH ONE (19:17)
[2023-03-03] MEDS ORDERED: diphenhydrAMINE 50 MG/ML SDV IVPUSH ONE (19:17)
[2023-03-03] MEDS ORDERED: Iopamidol 755 MG/ML 500 ML Multipack Bottle IVPUSH ONE (19:41)
== END 2023-03-03 22:30 | disposition left against medical advice (07) ==
LOC: MW.ED 17:01
DX: R51.9 Headache, unspecified (principal); J44.9 Chronic obstructive pulmonary disease, unspecified; Z79.899 Other long term (current) drug therapy; Z88.5 Allergy status to narcotic agent; Z88.2 Allergy status to sulfonamides
CPT/HCPCS: 36415; 70450; 70496; 70498; 71045; 80053; 84484; 85025; 85610; 93005; 96361; 96374; 96375; 99284; J1200; J2765; J3490; J7040; Q9967; 93010

== ENCOUNTER 2023-07-16 12:09 | Emergency (ER) | payer BC | END 2023-07-16 13:11 | disposition home or self-care (01) | LOC: MW.ED 12:09 | DX: Z48.02 Encounter for removal of sutures (principal); Z88.5 Allergy status to narcotic agent; Z88.2 Allergy status to sulfonamides; Z79.899 Other long term (current) drug therapy; Z90.49 Acquired absence of other specified parts of digestive tract; Z90.710 Acquired absence of both cervix and uterus | CPT/HCPCS: 99281; 99283 ==

== ENCOUNTER 2023-08-25 09:12 | Emergency (ER) | payer BC ==
[2023-08-25] MEDS ORDERED: Sodium Chloride 0.9% 1,000 ML IV ONE (09:38)
[2023-08-25] MEDS ORDERED: Sodium Chloride 0.9% 2.5 ML Syringe FLUSH PRN (09:38)
[2023-08-25] MEDS ORDERED: Sodium Chloride 0.9% 10 ML Syringe FLUSH PRN (09:38)
[2023-08-25] MEDS ORDERED: LORazepam 2 MG/ML SDV IVPUSH ONE (09:39)
[2023-08-25 10:16] LABS: BASOPHILS ABSOLUTE AUTO 0.06 K/uL (0.00-0.20); BASOPHILS PERCENT AUTO 1.2 % (0.0-1.0); EOSINOPHILS ABSOLUTE AUTO 0.28 K/uL (0.00-0.45); EOSINOPHILS PERCENT AUTO 5.6 % (0.0-6.0); HEMATOCRIT 32.4 % (37.0-47.0); HEMOGLOBIN 10.1 g/dL (12.0-16.0); IMMATURE GRAN ABSOLUTE AUTO 0.01 K/uL (0.00-0.05); IMMATURE GRAN PERCENT AUTO 0.2 % (0.0-0.4); LYMPHOCYTES ABSOLUTE AUTO 1.41 K/uL (1.00-4.80); MEAN CORPUSCULAR HEMOGLOBIN 25.5 pg (28.0-32.0); MEAN CORPUSCULAR HGB CONC 31.2 g/dL (32.0-36.0); MEAN CORPUSCULAR VOLUME 81.8 fL (83.0-99.0); MONOCYTES ABSOLUTE AUTO 0.55 K/uL (0.00-0.80); MONOCYTES PERCENT AUTO 10.9 % (0.0-8.0); NEUTROPHILS ABSOLUTE AUTO 2.73 K/uL (1.80-7.70); NEUTROPHILS PERCENT AUTO 54.1 % (41.0-71.0); PLATELET COUNT,PLT 467 K/uL (150-400); RED BLOOD CELL COUNT 3.96 M/uL (4.10-5.30); WHITE BLOOD CELL COUNT,WBC 5.04 K/uL (3.9-11.3)
[2023-08-25 10:32] LABS: D-DIMER QUANTITATIVE 1.09 mg/L FEU (0.00-0.50); INR 1.07 (0.86-1.11)
[2023-08-25 10:50] LABS: A/G RATIO 0.9 (0.9-1.6); ALANINE AMINOTRANSFERASE,ALT 21 IU/L (14-63); ALBUMIN 3.5 g/dL (3.4-5.0); ALKALINE PHOSPHATASE 144 U/L (46-116); ASPARTATE AMNIOTRANSFERASE,AST 9 IU/L (15-37); BILIRUBIN TOTAL 0.2 mg/dL (0.2-1.0); BLOOD UREA NITROGEN,BUN 12 mg/dL (7.0-18.0); CALCIUM 8.7 mg/dL (8.5-10.1); CARBON DIOXIDE,CO2 26.1 mmol/L (21.0-32.0); CHLORIDE,CL 109 mmol/L (98-107); CREATININE 0.8 mg/dL (0.6-1.0); EST CRCL DRUG DOSING (CG) 87.27 mL/min; GLUCOSE RANDOM 70 mg/dL (74-106); POTASSIUM,K 4.1 mmol/L (3.5-5.1); PROTEIN TOTAL,TP 7.2 g/dL (6.4-8.2); SODIUM,NA 146 mmol/L (136-145); TSH ULTRASENSITIVE 1.65 uIU/mL (0.36-3.74)
[2023-08-25 10:52] LABS: ESTIMATED GFR 93 mL/min (>60)
[2023-08-25] MEDS ORDERED: Iopamidol 755 MG/ML 500 ML Multipack Bottle IVPUSH ONE (12:15)
== END 2023-08-25 13:33 | disposition home or self-care (01) ==
LOC: MW.ED 09:12
DX: R00.2 Palpitations (principal); J44.9 Chronic obstructive pulmonary disease, unspecified; Z88.2 Allergy status to sulfonamides; Z88.5 Allergy status to narcotic agent; Z79.899 Other long term (current) drug therapy; Z90.710 Acquired absence of both cervix and uterus
CPT/HCPCS: 36415; 71045; 71275; 80053; 84443; 84484; 85025; 85379; 85610; 93005; 96361; 96374; 99285; J2060; J3490; J7030; Q9967

== ENCOUNTER 2024-03-22 17:22 | Emergency (ER) | payer OTHER, BC ==
[2024-03-22] MEDS: Diphtheria,Pertussis(Acell),Tetanus Vaccine 0.5 ML Syringe IM ONE (18:18)
[2024-03-22] MEDS: Tetracaine HCl/PF 0.5% 4 ML Bottle EYERT STA (18:18)
== END 2024-03-22 19:14 | disposition home or self-care (01) ==
LOC: MW.ED 17:22
DX: S05.01XA Injury of conjunctiva and corneal abrasion without foreign body, right eye, initial encounter (principal); J44.9 Chronic obstructive pulmonary disease, unspecified; Z23 Encounter for immunization; Z90.49 Acquired absence of other specified parts of digestive tract; Z90.710 Acquired absence of both cervix and uterus; Z79.899 Other long term (current) drug therapy; Z88.5 Allergy status to narcotic agent; Z88.2 Allergy status to sulfonamides; Z75.8 Other problems related to medical facilities and other health care; X58.XXXA Exposure to other specified factors, initial encounter
CPT/HCPCS: 90471; 90715; 99283; 99283-25; J3490